=== PATIENT | female | born 1990 | race Caucasian/White ===

== ENCOUNTER 2020-06-26 19:31 | Emergency (ER) | payer OTHER ==
[~2020-06-26] VITALS: Ht 165.1 cm; Wt 59.0 kg
[~2020-06-26 19:31] MED LIST: APAP500 PO; IBUPROFEN 800800 M1 PO; LORTAB 5 MG/5001 TA1 PO; NOHOMEMEDICATIONS; NORCO 5-325 TA1 EACH PO; PENICILLIN V P500 MG PO; ULTRAM 50MG TAB50 MG PO
[2020-06-26] MEDS ORDERED: IBUPROFEN 600600 M1 PO (20:26)
[2020-06-26] MEDS ORDERED: TRAMADOL 50 MG50 MG PO (20:26)
[2020-06-26 20:36] VITALS: BP 123/79
== END 2020-06-26 20:38 | disposition home or self-care (01) ==
LOC: M.ERS 19:31
DX: M25.511 Pain in right shoulder (principal); F17.210 Nicotine dependence, cigarettes, uncomplicated; Z98.890 Other specified postprocedural states